=== PATIENT | female | born 1990 | race Caucasian/White ===

== ENCOUNTER 2023-04-18 08:20 | Observation (INO) | payer BC ==
[2023-04-18] MEDS ORDERED: LORazepam 0.5 MG Tab PO PRN (10:00)
[2023-04-18] MEDS ORDERED: oxyCODONE 5 MG Tab PO PRN (10:00)
[2023-04-18] MEDS: Misoprostol 200 MCG Tab VAG SCH ×2 (11:20→14:37)
[2023-04-18] MEDS ORDERED: Misoprostol 200 MCG Tab VAG SCH (13:00)
[2023-04-18] MEDS: Ibuprofen 600 MG Tab PO PRN (17:01)
[2023-04-18] MEDS ORDERED: diphenhydrAMINE 50 MG/ML SDV IVPUSH PRN (19:44)
[2023-04-18] MEDS ORDERED: Phenylephrine 1% 10 MG/ML SDV IVPUSH PRN (19:44)
[2023-04-18] MEDS ORDERED: Bupivacaine/fentaNYL/NS 100 ML Bag EPIDUR PRN (19:44)
[2023-04-18] MEDS ORDERED: fentaNYL 100 MCG/2 ML SDV EPIDUR PRN (19:44)
[2023-04-18] MEDS ORDERED: ePHEDrine 50 MG/ML SDV IVPUSH PRN (19:44)
[2023-04-18] MEDS: Acetaminophen 325 MG Tab PO PRN (19:51)
[2023-04-18] MEDS: Ondansetron 4 MG/2 ML SDV IVPUSH PRN (20:26)
[2023-04-18] MEDS: fentaNYL 100 MCG/2 ML SDV IVPUSH PRN (20:36)
[2023-04-18] MEDS: Misoprostol 200 MCG Tab BUCCAL SCH (21:50)
[2023-04-19] MEDS ORDERED: Witch Hazel Medicated Pads 40/Jar TOP PRN (09:29)
[2023-04-19] MEDS ORDERED: Benzocaine/Menthol 20%-0.5% Spray 78 GM Cannister TOP PRN (09:29)
[2023-04-19] MEDS: oxyCODONE 5 MG Tab PO ONE (10:20)
[2023-04-19] MEDS: Ondansetron 4 MG Tab.DIS PO ONE (10:21)
== END 2023-04-19 12:09 | disposition home or self-care (01) ==
LOC: JD.OB 10:47
PROVIDERS: ADMIT Family Medicine; ATTEND Family Medicine
DX: O36.4XX0 Maternal care for intrauterine death, not applicable or unspecified (principal); O80 Encounter for full-term uncomplicated delivery; Z37.1 Single stillbirth; Z3A.24 24 weeks gestation of pregnancy; Z79.899 Other long term (current) drug therapy
CPT/HCPCS: 59409; 88233; A9270; J2405; J3010